=== PATIENT | female | born 1970 | race Caucasian/White ===

== ENCOUNTER 2019-02-18 07:09 | Day surgery (SDC) | payer OTHER ==
[~2019-02-18 07:09] MED LIST: CEFAZOLIN 1 GM/50 ML (PMX) 50 ML IVPB
[2019-02-18] MEDS ORDERED: FENTAnyl 50 MCG/ML VIAL (07:17)
[2019-02-18 07:41] LABS: ADD MAN DIFF? NO
[2019-02-18 07:43] LABS: BASOPHIL # 0.1 10^3/ul (0.0-0.1); BASOPHILS % 0.5 % (0.0-2.0); EOSINOPHILS # 0.3 10^3/ul (0.0-0.5); EOSINOPHILS % 2.7 % (0.0-7.0); HEMATOCRIT 35.8 % (37.0-47.0); HEMOGLOBIN 11.2 g/dl (12.0-16.0); LYMPHOCYTES # 3.9 10^3/ul (0.8-2.9); LYMPHOCYTES % 36.6 % (15.0-51.0); MEAN CORPUSCULAR HEMOGLOBIN 25.2 pg (29.0-33.0); MEAN CORPUSCULAR HGB CONC 31.3 g/dl (32.0-37.0); MEAN CORPUSCULAR VOLUME 80.6 fl (82.0-101.0); MEAN PLATELET VOLUME 9.8 fl (7.4-10.4); MONOCYTE # 0.7 10^3/ul (0.3-0.9); MONOCYTES % 6.8 % (0.0-11.0); NEUTROPHIL # 5.7 10^3/ul (1.6-7.5); NEUTROPHILS % 53.2 % (39.0-77.0); PLATELET COUNT 254 10^3/UL (140-415); RED BLOOD COUNT 4.44 10^6/ul (4.20-5.40); RED CELL DISTRIBUTION WIDTH 13.9 % (11.5-14.5)
[2019-02-18 07:43] LABS: WHITE BLOOD COUNT 10.6 10^3/ul (4.8-10.8)
[2019-02-18] MEDS ORDERED: LIDOCAINE 1% (MPF) 30 ML INJ (07:44)
[2019-02-18] MEDS ORDERED: MIDAZOLAM 1 MG/ML 2 ML INJ (07:48)
[2019-02-18] MEDS: LIDOCAINE 1% (MPF) 30 ML INJ INJ (07:48)
[2019-02-18] MEDS ORDERED: LACTATED RINGER'S 1,000 ML IV (08:00)
[2019-02-18 08:03] LABS: INR 0.94; PROTIME 12.7 Sec (11.9-14.9)
[2019-02-18 08:04] LABS: PARTIAL THROMBOPLASTIN TIME 28.7 Sec (23.0-35.0)
[2019-02-18 08:05] LABS: ANION GAP 12 (5-13); BLOOD UREA NITROGEN 14 mg/dl (7-20); CALCIUM 8.8 mg/dl (8.4-10.2); CARBON DIOXIDE 21 mmol/L (21-31); CHLORIDE 108 mmol/L (97-110); CREATININE 0.59 mg/dl (0.44-1.00); Estimated GFR > 60 mL/min (>60); GLUCOSE 151 mg/dl (70-220); POTASSIUM 4.4 mmol/L (3.5-5.1); SODIUM 141 mmol/L (135-144)
[2019-02-18] MEDS ORDERED: PROPOFOL 20 ML (08:07)
[2019-02-18] MEDS ORDERED: CEFAZOLIN 1 GM INJ (08:07)
[2019-02-18] MEDS ORDERED: LIDOCAINE 2% (SDV) 5 ML INJ (08:07)
[2019-02-18] MEDS ORDERED: DEXAMETHASONE 4 MG/ML 1 ML INJ (08:12)
[2019-02-18] MEDS ORDERED: KETOROLAC 30 MG INJ (08:12)
[2019-02-18] MEDS ORDERED: BUPIVACAINE 0.5% (SDV) 30 ML INJ (08:12)
[2019-02-18] MEDS: BUPIVACAINE 0.5% 30 ML VIAL INJ (08:20)
[2019-02-18] MEDS: DEXAMETHASONE 4 MG/ML 1 ML INJ INJ (08:20)
== END 2019-02-18 09:30 | disposition home or self-care (01) ==
LOC: SDS 07:09
DX: M67.471 Ganglion, right ankle and foot (principal); E78.5 Hyperlipidemia, unspecified; E11.9 Type 2 diabetes mellitus without complications; F17.210 Nicotine dependence, cigarettes, uncomplicated
CPT/HCPCS: 28090; 80048; 82962; 85025; 85610; 85730